=== PATIENT | female | born 1955 | race Caucasian/White ===

== ENCOUNTER 2017-12-24 08:13 | Emergency (ER) | payer SELFPAY ==
[~2017-12-24] VITALS: Ht 162.6 cm; Wt 78.0 kg
[2017-12-24] MEDS ORDERED: PRILOSEC10 M1 PO (08:57)
[2017-12-24] MEDS ORDERED: CLARITIN10 M2 PO (08:57)
[2017-12-24] MEDS ORDERED: OXYCODONE HCL5 MG PO (12:54)
[2017-12-24] MEDS ORDERED: FLOMAX0.4 MG PO (12:54)
[2017-12-24] MEDS ORDERED: ZOFRAN ODT4 MG SL (12:54)
[2017-12-24] MEDS ORDERED: CIPRO500 MG PO (12:54)
== END 2017-12-24 13:05 | disposition home or self-care (01) ==
LOC: ED 08:13
DX: N13.2 Hydronephrosis with renal and ureteral calculous obstruction (principal); Z87.442 Personal history of urinary calculi; Z88.2 Allergy status to sulfonamides; Z79.899 Other long term (current) drug therapy
CPT/HCPCS: 74176; 80053; 81001; 85025; 87088; 96374; 96375; 99284; J0696; J1170; J1885; J2405

== ENCOUNTER 2025-01-18 02:55 | Emergency (ER) | payer MEDICARE, OTHER ==
[~2025-01-18] VITALS: Ht 162.6 cm; Wt 80.7 kg
[~2025-01-18 02:55] MED LIST: CIPRO500 MG PO; CLARITIN10 M2 PO; FLOMAX0.4 MG PO; OXYCODONE HCL5 MG PO; PRILOSEC10 M1 PO; ZOFRAN ODT4 MG SL
[2025-01-18 03:14] LABS: BASOPHILS 0.7 % (0-2); EOSINOPHILS 2.4 % (0-6); HEMOGLOBIN 15.4 g/dL (12.0-18.0); LYMPHOCYTES 31.5 % (24-44); MCH 29.9 (27-36); MCHC 34.9 g/dl (30-36); MCV 85.7 fl (81-99); NEUTROPHILS 57.4 % (39-80); PLATELET COUNT 287 K/uL (140-440); RBC 5.14 M/ul (4.3-5.7); RDW 13.4 (10.5-15.0)
[2025-01-18] MEDS ORDERED: METOPROLOL TARTRATE 5 MG/5 ML VIAL IV ONE (03:15)
[2025-01-18 03:35] LABS: ALBUMIN 4.2 g/dL (3.4-5.0); ALBUMIN/GLOBULIN RATIO 1.17 (1.1-2.4); ANION GAP 14.7 (7-21); BILIRUBIN, TOTAL 0.5 mg/dL (0.2-1.0); BUN/CREATININE RATIO 18.29 (6.0-28.6); CALCIUM 9.9 mg/dL (8.5-10.1); CREATININE, SERUM 0.82 mg/dL (0.55-1.02); MAGNESIUM 1.8 mg/dL (1.8-2.4); POTASSIUM 3.7 mmol/L (3.5-5.1); PROTEIN, TOTAL 7.8 g/dL (6.4-8.2)
[2025-01-18] MEDS ORDERED: METOPROLOL SUCC25 MG PO (04:13)
[2025-01-18 05:00] VITALS: BP 120/82
--- NOTE | 2025-01-19 12:58 | EKG ---
[facility] [address] [facility] [place] [address] Signed Normal sinus rhythm Inferior infarct , age undetermined Abnormal ECG When compared with ECG of 18-JAN-2025 02:59, (Unconfirmed) Sinus rhythm has replaced Wide QRS tachycardia Vent. rate has decreased BY 81 BPM Confirmed by Ronak Love DO ([id number]) on 01/19/2025 12:58:15 PM Electronically Signed By: RONAK LOVE DO 01/19/25 1258 PATIENT NAME: ALBINA JARAMILLO Electrocardiogram DATE OF : 57 PHYSICIAN: RONAK LOVE DO REPORT #: [id number] REPORT IS CONFIDENTIAL AND NOT TO BE RELEASED WITHOUT AUTHORIZATION
--- NOTE | 2025-01-19 12:58 | EKG ---
[facility] [address] [facility] [place] [address] Signed Sinus tachycardia Nonspecific intraventricular block Minimal voltage criteria for LVH, may be normal variant ( [place] product ) Inferior infarct , age undetermined Abnormal ECG No previous ECGs available Confirmed by Ronak Love DO ([id number]) on 01/19/2025 12:58:09 PM Electronically Signed By: RONAK LOVE DO 01/19/25 1258 PATIENT NAME: ALBINA JARAMILLO Electrocardiogram DATE OF : 57 PHYSICIAN: RONAK LOVE DO REPORT #: [id number] REPORT IS CONFIDENTIAL AND NOT TO BE RELEASED WITHOUT AUTHORIZATION
== END 2025-01-18 05:00 | disposition home or self-care (01) ==
LOC: ED 02:55
PROVIDERS: Family Medicine
DX: I47.10 Supraventricular tachycardia, unspecified (principal); Z88.2 Allergy status to sulfonamides
CPT/HCPCS: 36415; 71045; 80053; 83735; 83880; 84484; 85025; 93005; 93010; 96374; 99285-25